=== PATIENT | male | born 1970 | race American Indian/Alaskan Native ===

== ENCOUNTER 2019-01-15 14:04 | Emergency (ER) | payer OTHER ==
[~2019-01-15] VITALS: Ht 182.9 cm; Wt 102.1 kg
[~2019-01-15 14:04] MED LIST: AUGMENTIN 875-1 EACH PO; CLINDAMYCIN HC300 MG PO; KEFLEX500 MG PO; MAALOX MAXIMUM355 ML PO; NAPROXEN500 MG PO; NORCO 5-325 TA1 EACH PO; OXYCODON-ACETA1 EAC2 PO; PEPCID20 MG PO; PERCOCET 7.5-31 EACH PO; ZANTAC150 MG PO
--- OUTSIDE RECORDS SUMMARY | 2019-01-15 14:06 | XMS ---
PreManage Notification: REBECCA OLEARY Security Buttonhole Maker Hand Events No recent Security Events currently on file CRITERIA MET - Group Notification - [facility] - 2 Visits in 30 Days CARE PROVIDERS EUGENIO KENDALL Physician Pallet Stone Positioner: Medical 01/01/2019-Current PHONE: Unknown Alvin has no Care Guidelines for this patient. Sukumar VISIT COUNT (12 MO.) [address] TOTAL 4 NOTE: Visits indicate total known visits. ED/UCC VISIT TRACKING (12 MO.) 01/15/2019 14:04 IVANNA Mondragon TYPE: Emergency COMPLAINT: - EXTREMITY PAIN 12/31/2018 19:56 IVANNA Mondragon TYPE: Emergency COMPLAINT: - CHEST PAIN DIAGNOSES: - Allergy status to analgesic agent status - Chest pain, unspecified - Acquired absence of other specified parts of digestive tract - Other chest pain - Other chest pain - Personal history of urinary calculi - Essential (primary) hypertension [facility] [place] [facility] DIAGNOSES: - Right Wrist Injury - Pain in right wrist - Wrist Pain 06/20/2018 12:10 Luciano [place] TYPE: Emergency DIAGNOSES: - Other chronic pain - Pain in left knee - Pain in right knee - Knee Pain - Bruising and knee pain INPATIENT VISIT TRACKING (12 MO.) No inpatient visits to display in this time frame [id number]
[2019-01-15] MEDS ORDERED: NORCO 5-325 TA1 EACH PO (16:08)
[2019-01-15] MEDS ORDERED: AUGMENTIN 875-1 EACH PO (16:08)
[2019-01-15] MEDS ORDERED: CRUTCH1 EACH MISC (16:14)
== END 2019-01-15 16:40 | disposition home or self-care (01) ==
LOC: ED 14:04
PROC: 2W3RX1Z Immobilization of Left Lower Leg using Splint (ICD-10-PCS; principal; 2019-01-15)
DX: S06.0X0A Concussion without loss of consciousness, initial encounter (principal); S82.832A Other fracture of upper and lower end of left fibula, initial encounter for closed fracture; S09.22XA Traumatic rupture of left ear drum, initial encounter; H66.91 Otitis media, unspecified, right ear; F10.10 Alcohol abuse, uncomplicated; I10 Essential (primary) hypertension; Z87.442 Personal history of urinary calculi; Z90.49 Acquired absence of other specified parts of digestive tract; Z88.6 Allergy status to analgesic agent; Y04.0XXA Assault by unarmed brawl or fight, initial encounter
CPT/HCPCS: 29505; 70450; 73560; 73590; 73610; 99284-25

== ENCOUNTER 2019-09-29 12:37 | Emergency (ER) | payer OTHER ==
[~2019-09-29] VITALS: Ht 182.9 cm; Wt 102.1 kg
[~2019-09-29 12:37] MED LIST changes: +CRUTCH1 EACH MISC
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
== END 2019-09-29 14:57 | disposition home or self-care (01) ==
LOC: ED 12:37
DX: S93.401A Sprain of unspecified ligament of right ankle, initial encounter (principal); I10 Essential (primary) hypertension; E78.00 Pure hypercholesterolemia, unspecified; Z79.899 Other long term (current) drug therapy; X58.XXXA Exposure to other specified factors, initial encounter
CPT/HCPCS: 73610; 99283-25

== ENCOUNTER 2020-12-17 17:17 | Emergency (ER) | payer OTHER ==
[~2020-12-17] VITALS: Ht 182.9 cm; Wt 102.1 kg
[~2020-12-17 17:17] MED LIST changes: +OMEPRAZOLE20 MG PO
--- OUTSIDE RECORDS SUMMARY | 2020-12-17 17:20 | XMS ---
PreManage Notification: REBECCA OLEARY Security Cloth Presser Events No recent Security Events currently on file CRITERIA MET - Group Notification CARE PROVIDERS EUGENIO KENDALL Physician Chicken Dresser: Medical 01/01/2019-Current PHONE: Unknown Alvin has no Care Guidelines for this patient. ELeia VISIT COUNT (12 MO.) 2 IVANNA Frey TOTAL 2 NOTE: Visits indicate total known visits. ED/UCC VISIT TRACKING (12 MO.) 12/17/2020 17:19 [facility] [place] TYPE: Emergency COMPLAINT: - ALCOHOL POISONING 04/03/2020 23:33 IV[facility] [place] TYPE: Emergency COMPLAINT: - NAUSEA AND VOMITING DIAGNOSES: - Allergy status to other drugs, medicaments and biological substances - Nausea with vomiting, unspecified - Essential (primary) hypertension - Precordial pain - Chest pain, unspecified INPATIENT VISIT TRACKING (12 MO.) No inpatient visits to display in this time frame [id number]
== END 2020-12-17 22:33 | disposition home or self-care (01) ==
LOC: ED 17:17
DX: F10.129 Alcohol abuse with intoxication, unspecified (principal); Y90.8 Blood alcohol level of 240 mg/100 ml or more; I10 Essential (primary) hypertension; E78.00 Pure hypercholesterolemia, unspecified; Z79.899 Other long term (current) drug therapy
CPT/HCPCS: 80053; 80176; 81001; 85025; 96374; 99284-25; J2310; J3411; J7030

== ENCOUNTER 2021-05-13 12:32 | Emergency (ER) | payer OTHER ==
[~2021-05-13] VITALS: Ht 182.9 cm; Wt 102.1 kg
--- OUTSIDE RECORDS SUMMARY | 2021-05-13 12:40 | XMS ---
PreManage Notification: REBECCA OLEARY Security Coconut Candy Maker Events No recent Security Events currently on file CRITERIA MET - Group Notification CARE PROVIDERS EUGENIO KENDALL Physician Senior Environmental Technician: Medical 01/01/2019-Current PHONE: Unknown Alvin has no Care Guidelines for this patient. ELeia VISIT COUNT (12 MO.) 2 IVANNA Frey TOTAL 2 NOTE: Visits indicate total known visits. ED/UCC VISIT TRACKING (12 MO.) 05/13/2021 12:33 [facility] [place] TYPE: Emergency COMPLAINT: - R ARM/ELBOW PAIN 12/17/2020 17:19 IVANNA Schmitz [place] TYPE: Emergency COMPLAINT: - INTOXICATION DIAGNOSES: - Alcohol abuse with intoxication, unspecified - Blood alcohol level of 240 mg/100 ml or more - Pure hypercholesterolemia, unspecified - Alcohol abuse with intoxication, unspecified - Essential (primary) hypertension - Other half-way (current) drug therapy INPATIENT VISIT TRACKING (12 MO.) No inpatient visits to display in this time frame [id number]
== END 2021-05-13 15:18 | disposition home or self-care (01) ==
LOC: ED 12:32
DX: M77.11 Lateral epicondylitis, right elbow (principal); I10 Essential (primary) hypertension; E78.00 Pure hypercholesterolemia, unspecified; Z88.8 Allergy status to other drugs, medicaments and biological substances
CPT/HCPCS: 73080; 99283-25

== ENCOUNTER 2021-10-28 21:07 | Emergency (ER) | payer OTHER ==
[~2021-10-28] VITALS: Ht 182.9 cm; Wt 100.0 kg
--- OUTSIDE RECORDS SUMMARY | 2021-10-28 21:14 | XMS ---
PreManage Notification: REBECCA OLEARY Security Crisis Manager Events No recent Security Events currently on file CRITERIA MET - Group Notification CARE PROVIDERS EUGENIO KENDALL Physician Provider Network Mgr: Medical 01/01/2019-[facility] PHONE: Unknown [facility] 05/14/2021-[facility] PHONE: [phone] Alvin has no Care Guidelines for this patient. Care History Medical/Surgical 05/14/2021 [facility] - PATIENT IS [facility] ELIGIBLE, \T\middot;\T\nbsp; PLEASE REFER PATIENT TO [facility] FOR NON EMERGENT MEDICAL NEEDS. \T\middot;\T\nbsp; [facility] CAN SEE PATIENTS SAME DAY FOR APTS IF PATIENT CALLS FIRST THING IN THE MORNING. E.D. VISIT COUNT (12 MO.) [address] [facility] TOTAL 3 NOTE: Visits indicate total known visits. ED/UCC VISIT TRACKING (12 MO.) 10/28/2021 21:07 IVANNA [facility]mitz [place] TYPE: Emergency COMPLAINT: - HIP PAIN 05/13/2021 12:33 IVANNA [place]mitz [place] TYPE: Emergency COMPLAINT: - R ARM/ELBOW PAIN/NON INJURY DIAGNOSES: - Pain in right elbow - Allergy status to other drugs, medicaments and biological substances - Pure hypercholesterolemia, unspecified - Essential (primary) hypertension - Lateral epicondylitis, right elbow 12/17/2020 17:[address] [facility] [place] TYPE: Emergency COMPLAINT: - INTOXICATION DIAGNOSES: - Alcohol abuse with intoxication, unspecified - Blood alcohol level of 240 mg/100 ml or more - Pure hypercholesterolemia, unspecified - Alcohol abuse with intoxication, unspecified - Essential (primary) hypertension - Other residential (current) drug therapy INPATIENT VISIT TRACKING (12 MO.) No inpatient visits to display in this time frame [id number]
== END 2021-10-28 22:00 | disposition home or self-care (01) ==
LOC: ED 21:07
DX: M70.61 Trochanteric bursitis, right hip (principal); I10 Essential (primary) hypertension; E78.00 Pure hypercholesterolemia, unspecified; Z88.8 Allergy status to other drugs, medicaments and biological substances
CPT/HCPCS: 73502; 99283-25; A9270